=== PATIENT | female | born 1940 | race Hispanic/Latino ===

== ENCOUNTER → 2017-05-18 | Day surgery (SDC) | payer MEDICARE ==
[2017-05-16 12:39] LABS: BASOPHILS # (AUTO) 0.1 (0.0-0.1); BASOPHILS % 0.9 % (0.0-1.0); EOSINOPHILS # (AUTO) 0.3 (0.0-0.4); EOSINOPHILS % 3.6 % (0.0-6.0); HEMATOCRIT 40.1 % (34.2-44.1); HEMOGLOBIN 13.4 g/dL (12.0-16.0); LYMPHOCYTES # (AUTO) 2.1 (1.0-3.2); LYMPHOCYTES % 29.5 % (18.0-39.1); MEAN CORPUSCULAR HEMOGLOBIN 31.2 pg (28-32); MEAN CORPUSCULAR HGB CONC 33.4 g/dL (31-35); MEAN CORPUSCULAR VOLUME 93.3 fL (81-99); MONOCYTES # (AUTO) 0.6 (0.2-0.8); MONOCYTES % 9.1 % (4.4-11.3); NEUTROPHILS # (AUTO) 3.9 (2.1-6.9); NEUTROPHILS % 56.6 % (38.7-80.0); PLATELET COUNT 245 x10e3/uL (140-360); RED CELL DISTRIBUTION WIDTH 11.9 % (11.7-14.4)
--- NOTE | 2017-05-16 14:35 | Diagnostic Imaging Report ---
PROCEDURE: X-RAY CHEST, TWO VIEWS COMPARISON: None. INDICATIONS: PRE OP SURGERY KNEE ON TUESDAY FINDINGS: LUNGS: No consolidations or edema. The vascular markings are normal. PLEURA: No effusions or pneumothorax. HEART \T\ MEDIASTINUM: The heart is within normal size-limits. BONES \T\ SOFT TISSUES: Mild degenerative changes of the spine. There is sclerosis of the right humeral head, lateral aspect. This could be from rotator cuff pathology or avascular necrosis. No evidence of fracture or impaction. Cholecystectomy clips are present. CONCLUSION: No acute thoracic abnormality. Osseous findings as described above. Dictated by: Chiquis Beth M.D. on 05/16/2017 at 14:35 Electronically approved by: Chiquis Beth M.D. on 05/16/2017 at 14:35
[~2017-05-18] MED LIST: ALENDRONATE SOD70 MG PO; ATORVASTATIN CA10 MG PO; BUPIVACAINE 0.5%/EPI 30 ML SDV INJ ONE; CEFAZOLIN SOD 2 GM/D5W 50ML 50 ML IV ONE; DEXAMETHASONE SOD PHOS INJ 4 MG/ML VIAL ONE; FENTANYL CITRATE/PF 100MCG/2 ML INJ ONE; KETOROLAC TROMETHAMINE 30 MG/ML VIAL ONE; LIDOCAINE HCL 2% LOCAL INJ 5 ML SDV VIAL INJ ONE; MIDAZOLAM HCL 2 MG/2 ML VIAL ONE; OMEPRAZOLE40 MG PO; ONDANSETRON HCL INJ 2 MG/ML VIAL ONE; OXYBUTYNIN CHLOR5 MG PO; PROPOFOL IV EMULSION 10 MG/ML 20 ML VIAL ONE; SEVOFLURANE INHAL SOLN 250 ML PEN BTL ONE; TRAZODONE HCL50 MG PO
--- OUTSIDE RECORDS SUMMARY | 2017-05-18 07:14 | XMS REPORT ---
Author [facility] Address Unknown Phone Unavailable Care Team Providers Care Cobbler Apprentice Name Role Phone MARIE PRYOR Unavailable Unavailable Problems This patient has no known problems. Allergies, Adverse Reactions, Alerts This patient has no known allergies or adverse reactions. Medications This patient has no known medications. Results Test Description Test Time Test Comments Text Results Atomic Results Result Comments CHEST 2 VIEWS [place] [address] Patient Name: SAGE DEL TORO MR #: [id number] : 1940 Age/Sex: 76/F Req #: [id number] Adm Physician: Ordered by: MAMADOU VELAZQUEZ MD Report #: [id number] Location: OR Room/Bed: Procedure: [id number] DX/CHEST 2 VIEWS Exam Date: 05/16/17 Exam Time: 1320 REPORT STATUS: Signed PROCEDURE: X-RAY CHEST, TWO VIEWS COMPARISON: None. INDICATIONS: PRE OP SURGERY KNEE ON TUESDAY FINDINGS : LUNGS: No consolidations or edema. The vascular markings are normal. PLEURA: No effusions or pneumothorax. HEART T MEDIASTINUM: The heart is within normal size-limits. BONES T SOFT TISSUES: Mild degenerative changes of the spine. There is sclerosis of the right humeral head, lateral aspect. This could be from rotator cuff pathology or avascular necrosis. No evidence of fracture or impaction. Cholecystectomy clips are present. CONCLUSION: No acute thoracic abnormality. Osseous findings as described above. Dictated by: Marco Beth M.D. on 05/16/2017 at 14:35 Electronically approved by: Marco Beth M.D. on 05/16/2017 at 14:35 Dictated By: MARCO BETH MD [id number] Transcribed By: CECILIA on 05/16/17 1435 COPY TO: MAMADOU VELAZQUEZ MD
--- NOTE | 2017-05-18 16:50 | Operative Report ---
DATE OF PROCEDURE: May 18, 2017 PREOPERATIVE DIAGNOSIS: 1. Left knee medial meniscus tear. 2. Left knee lateral meniscus tear. 3. Left knee degenerative joint disease of the knee. POSTOPERATIVE DIAGNOSIS: 1. Left knee medial meniscus tear. 2. Left knee lateral meniscus tear. 3. Left knee degenerative joint disease of the knee. PROCEDURE PERFORMED: The patient underwent a 1. Left knee examination under anesthesia. 2. Left knee arthroscopy. 3. Left knee partial medial meniscectomy. 4. Left knee partial lateral meniscectomy. 5. Left knee chondroplasty of the patella, the trochlea, the medial femoral condyle and the medial plateau, lateral femoral condyle and lateral tibial plateau. LAPIDARY APPRENTICE: None. ANESTHESIA: General endotracheal intubation anesthesia. IV FLUIDS: As per the anesthesia record. DESCRIPTION OF PROCEDURE: Ms. Aviles was taken to the operating room and placed in the supine position on the operating table. Following induction of general anesthesia as well as endotracheal intubation, the patient's left lower extremity was examined under anesthesia. She was found to have a mild effusion within the knee joint but an otherwise ligamentously stable knee. The patient's lower extremity was prepped and draped in standard surgical fashion. A 2-portal technique was used to provide this patient an arthroscopic evaluation of the knee joint. Examination of the suprapatellar pouch and medial and lateral gutters found no evidence of loose bodies. There was, however, evidence of chondromalacia of the patellar and trochlear surfaces. The scope was then advanced into the medial compartment, and examination of the medial compartment demonstrated a tear in the posterior root of the medial meniscus. There was also chondromalacia of articulating surfaces. A combination of biting forceps and a motorized shaver were used to resect the torn portion of the meniscus. Chondroplasties of the medial femoral condyle and the medial tibial plateau were performed at this time. The scope was then advanced into the intercondylar notch, and the anterior cruciate ligament was identified and found to be intact. The scope was then advanced into the lateral compartment, and there was a tear in the anterior midsections of the lateral meniscus. There was also chondromalacia of articulating surfaces. A combination of biting forceps and a motorized shaver were used to resect the torn portion of the meniscus. Chondroplasties of the lateral femoral condyle and lateral tibial plateau were performed at this time. The scope was then placed in the suprapatellar pouch, and chondroplasties of the patella and trochlea were performed. The knee was deflated of its sterile normal saline. Each of the portal sites were closed using 4-0 nylon suture. The portal sites as well as the knee itself were then injected with half percent Marcaine with epinephrine. Sterile dressings were applied, and the patient was awakened and taken to the postanesthesia care unit in stable condition. Job#: [id number]
== END | disposition home or self-care (01) ==
LOC: OR 07:11
PROVIDERS: ATTEND Radiology Diagnostic Radiology
DX: S83.222A Peripheral tear of medial meniscus, current injury, left knee, initial encounter (principal); S83.282A Other tear of lateral meniscus, current injury, left knee, initial encounter; M71.22 Synovial cyst of popliteal space [Baker], left knee; M17.12 Unilateral primary osteoarthritis, left knee; M22.42 Chondromalacia patellae, left knee; K21.9 Gastro-esophageal reflux disease without esophagitis; X58.XXXA Exposure to other specified factors, initial encounter; Z01.810 Encounter for preprocedural cardiovascular examination; Z01.812 Encounter for preprocedural laboratory examination; Z01.818 Encounter for other preprocedural examination; Z68.32 Body mass index [BMI] 32.0-32.9, adult
CPT/HCPCS: 29880; 36415; 71046; 85025; 93005; J1100; J1885; J2001; J2250; J2405